=== PATIENT | female | born 1975 | race Caucasian/White ===

== ENCOUNTER → 2020-01-26 10:30 | Outpatient (CLI) | payer BC, SELFPAY ==
--- NOTE | ~2020-01-26 | MM_ITS ---
EXAMINATION: MM screening [facility] w [facility] HISTORY: Screening mammogram TECHNIQUE: Craniocaudal and mediolateral oblique 3-D tomosynthesis images were obtained and synthetic 2-D images were generated. Rotated lateral cc views. CAD analysis was submitted and interpreted. COMPARISON: 09/28/2018, 09/17/2017, 09/16/2016 bilateral digital screening mammogram examinations BREAST PARENCHYMAL COMPOSITION: The breasts are heterogeneously dense, which may obscure small masses . FINDINGS: There is no evidence of suspicious mass, calcification, or architectural distortion to sugg est malignancy in either breast. There has been no suspicious interval change. IMPRESSION: 1. No mammographic evidence of malignancy. 2. Recommend routine screening mammography in one year. BI-RADS Category 1: Negative Reviewed, dictated and finalized at location A.
== END ==
PROVIDERS: PCP Family Medicine; Visit Provider Obstetrics & Gynecology
DX: Z12.31 Encounter for screening mammogram for malignant neoplasm of breast (principal)
CPT/HCPCS: 77063; 77067

== ENCOUNTER 2020-04-23 08:26 | Outpatient (CLI) | payer BC, SELFPAY ==
[2020-04-23 09:36] LABS: Hemoglobin A1C 5.9 % (<5.7)
[2020-04-23 09:39] LABS: Alanine Aminotransferase 20 U/L (4-35); Albumin Level 4.3 g/dL (3.5-5.1); Alkaline Phosphatase 61 U/L (38-126); Anion Gap 10 mmol/L (8-16); Aspartate Amino Transferase 32 U/L (14-36); Bilirubin,Total 0.7 mg/dL (0.2-1.3); Blood Urea Nitrogen 14 mg/dL (7-17); Calcium 8.8 mg/dL (8.4-10.2); Carbon Dioxide 24 mmol/L (22-30); Chloride 104 mmol/L (98-107); Estimated Glomerular Filt Rate > 60; Glucose 110 mg/dL (65-105); Potassium 4.7 mmol/L (3.4-5.0); Sodium 138 mmol/L (137-145)
== END 2020-04-23 08:27 | disposition home or self-care (01) ==
LOC: ANHLAB 08:27
PROVIDERS: PCP Family Medicine; Visit Provider Physician Assistant
DX: E11.9 Type 2 diabetes mellitus without complications (principal)
CPT/HCPCS: 36415; 80053; 83036

== ENCOUNTER 2020-07-26 10:55 | Outpatient (CLI) | payer BC, SELFPAY ==
[2020-07-26 11:46] LABS: Alanine Aminotransferase 23 U/L (4-35); Albumin Level 4.1 g/dL (3.5-5.1); Alkaline Phosphatase 70 U/L (38-126); Anion Gap 8 mmol/L (8-16); Aspartate Amino Transferase 29 U/L (14-36); Bilirubin,Total 0.4 mg/dL (0.2-1.3); Blood Urea Nitrogen 14 mg/dL (7-17); Calcium 8.9 mg/dL (8.4-10.2); Carbon Dioxide 26 mmol/L (22-30); Chloride 102 mmol/L (98-107); Cholesterol 174 mg/dL (0-200); Estimated Glomerular Filt Rate > 60; Glucose 113 mg/dL (65-105); HDL Direct 53 mg/dL; Potassium 4.6 mmol/L (3.4-5.0); Sodium 136 mmol/L (137-145); Triglycerides 241 mg/dL (<150)
[2020-07-26 11:57] LABS: LDL Cholesterol Direct 89 mg/dL
== END 2020-07-26 10:56 | disposition home or self-care (01) ==
PROVIDERS: PCP Family Medicine; Visit Provider Physician Assistant
DX: E11.9 Type 2 diabetes mellitus without complications (principal); E78.2 Mixed hyperlipidemia
CPT/HCPCS: 36415; 80053; 80061

== ENCOUNTER 2020-09-19 11:24 | Emergency (ER) | payer BC, SELFPAY ==
[2020-09-19 11:43] VITALS: BP 115/69; PULSE 65; RESP 16; TEMP 36.6; O2SAT 100
[2020-09-19 11:47] VITALS: BP 115/69; PULSE 65; RESP 16; TEMP 36.6; O2SAT 100
--- NOTE | 2020-09-19 12:08 | ED.GENADULT ---
HPI - General Adult General Chief complaint: Upper Respiratory Infection Stated complaint: congestion/cough/ears blocked Time Seen by Provider: 09/19/20 12:08 Source: patient and RN notes reviewed Mode of arrival: ambulatory Limitations: no limitations History of Present Illness HPI narrative: 45-year-old female presents with complaints of upper respiratory infection, some facial congestion, facial pressure, and ear fullness for the past 4 days. Jazmín reports increasing symptoms over the past 24 hours. NyQuil, DayQuil, Flonase, diffuser, cough drops, and increase fluid without relief. No facial swelling. Intermittent dry cough without chest congestion. Nasal congestion and rhinorrhea. No high fevers, drooling, neck or throat swelling. No voice change. No nausea, vomiting, or abdominal pain. Tolerating liquids well. Denies dyspnea, difficulty swallowing, jaw pain, dental pain, foreign body sensation, and rash. No chest pain or shortness of breath. LMP hysterectomy. Remains active. The patient reports she have not been diagnosed with COVID-19. The patient reports she is not waiting for the results of a COVID-19 lab test. The patient reports she do not have chills, weakness, or fatigue. The patient reports she do not have any sore throat, loss of taste or smell, and diarrhea. Denies recent traveling. Denies concerns for COVID-19 or exposures been home with limited outdoor exposure except for essential household needs, work, and return home. At this time, patient is not suspected of having COVID-19. Some parts of this dictation were generated by voice recognition software and may contain typographical and/or grammatical inaccuracies. Related Data Home Medications Medication Instructions Recorded Confirmed cetirizine 10 mg tablet 10 mg PO DAILY 06/26/19 04/23/20 fluticasone propionate 50 2 spray NASAL DAILY 06/26/19 04/23/20 mcg/actuation nasal spray,suspension norethindrone 1 mg-ethinyl 1 tablet PO DAILY 06/26/19 04/23/20 estradiol 10 mcg (24)-iron 10 mcg(2) tablet Allergies Allergy/AdvReac Type Severity Reaction Status Date / Time trimethobenzamide Allergy Mild LOCAL Verified 04/23/20 15:23 REACTION Review of Systems Review of Systems: Narrative: CONSTITUTIONAL: Denies fever, chills, sweats. EYES: Denies visual changes, redness, discharge. ENT: Complains of rhinorrhea, congestion, facial congestion and pressure. Denies sore throat, otalgia. CARDIOVASCULAR: Denies chest pain, palpitations, edema. RESPIRATORY: Denies dyspnea, wheezing. Complains of intermittent dry cough. GASTROINTESTINAL: Denies abdominal pain, nausea, vomiting, diarrhea. GENITOURINARY: Denies dysuria, hematuria, abnormal discharge SKIN: Denies rash or itching. MUSCULOSKELETAL: Denies acute back pain, joint pain, or myalgia. NEUROLOGIC: Denies numbness or focal weakness. PSYCHIATRIC: Denies anxiety or depression. All other systems reviewed & are unremarkable except as noted in HPI and below. [facility] Past Medical History Medical History (Updated 09/20/20 @ 00:00 by Yogesh Tripathi) Diabetes Exercise-induced asthma Mixed hyperlipidemia PCO (polycystic ovaries) Surgical History Surgical History (Updated 09/19/20 @ 12:23 by MARIANA Anguiano) History of hysterectomy History of tubal ligation Family History Family History Father Hypertension Family history of diabetes mellitus in first degree relative Mother Hypertension Asthma Family history of diabetes mellitus in first degree relative Sibling Asthma Social History Social History (Updated 09/19/20 @ 12:24 by MARIANA Anguiano) Smoking status: Never smoker Tobacco type: cigarettes Second hand tobacco smoke exposure: No Alcohol intake: current Substance use: never Substance use type: does not use Living arrangements: with family Occupation/Education: occupation
[2020-09-20 13:22] LABS: SARS-CoV-2 RNA PCR Negative
== END 2020-09-19 12:58 | disposition home or self-care (01) ==
PROVIDERS: Emergency Provider Nurse Practitioner Family; PCP Family Medicine
DX: J32.9 Chronic sinusitis, unspecified (principal); Z20.822 Contact with and (suspected) exposure to COVID-19; E11.9 Type 2 diabetes mellitus without complications; E78.5 Hyperlipidemia, unspecified; E28.2 Polycystic ovarian syndrome
CPT/HCPCS: 87804; 99213; C9803; G0463; U0003; U0005

== ENCOUNTER 2020-11-05 15:56 | Outpatient (CLI) | payer BC, SELFPAY ==
[2020-11-05 16:16] LABS: Basophils Absolute Auto 0.1 K/mm3 (0.0-0.1); Basophils Percent Auto 0.8 % (0.2-1.2); Eosinophils Absolute Auto 0.1 K/mm3 (0-0.3); Eosinophils Percent Auto 0.5 % (0-4.4); Hematocrit 40.7 % (37.0-47.0); Hemoglobin 13.6 g/dL (12.0-15.0); Immature Granulocyte Absolute 0.04 K/mm3 (0.00-0.031); Immature Granulocyte Percent A 0.4 % (0-0.5); Lymphocytes Absolute Auto 3.35 K/mm3 (0.9-3.2); Lymphocytes Percent Auto 31.5 % (18.3-44.2); Mean Corpuscular HGB Conc 33.4 g/dl (32-36); Mean Corpuscular Volume 86.8 fl (80-100); Mean Platelet Volume 9.5 fl (7.4-10.4); Monocytes Absolute Auto 0.8 K/mm3 (0.1-0.6); Monocytes Percent Auto 7.1 % (2.6-8.5); Neutrophils Absolute Auto 6.4 K/mm3 (1.3-6.7); Neutrophils Percent Auto 59.7 % (45.5-73.1); Platelet Count Result 327 k/mm3 (150-375); Red Blood Count 4.69 M/mm3 (4.2-5.4); Red Cell Distribution Width 12.1 % (11.5-14.5); White Blood Count 10.6 K/mm3 (4.5-10.0)
[2020-11-05 16:21] LABS: Add Urine Microscopic? YES; Appearance Urine Cloudy (Clear); Bacteria Urine Trace /hpf; Bilirubin Urine Negative (Negative); Blood Urine Negative (Negative); Color Urine Yellow (Yellow); Glucose Urine UA Negative (Negative); Ketones Urine Negative (Negative); Leukocyte Esterase Ur Negative LEU/UL (NEGATIVE); Mucus Urine Rare /lpf; Nitrate Urine Negative (Negative); Protein Urine Negative (Negative); RBC Urine 0-2 /hpf (0-2); Specific Grav Ur 1.028 (1.001-1.035); Squamous Epithelial Cell Urine Moderate /hpf (Few); Urobilinogen Urine Negative mg/dL (<2.0); WBC Urine 0-3 /hpf (0-3)
[2020-11-05 16:27] LABS: Alanine Aminotransferase 23 U/L (4-35); Albumin Level 4.2 g/dL (3.5-5.1); Alkaline Phosphatase 72 U/L (38-126); Anion Gap 4 mmol/L (8-16); Aspartate Amino Transferase 38 U/L (14-36); Bilirubin,Total 0.2 mg/dL (0.2-1.3); Blood Urea Nitrogen 15 mg/dL (7-17); Calcium 9.1 mg/dL (8.4-10.2); Carbon Dioxide 27 mmol/L (22-30); Chloride 106 mmol/L (98-107); Estimated Glomerular Filt Rate > 60; Glucose 163 mg/dL (65-105); Potassium 4.2 mmol/L (3.4-5.0); Sodium 137 mmol/L (137-145)
[2020-11-05 16:46] LABS: Hemoglobin A1C 6.5 % (<5.7)
== END 2020-11-05 15:57 | disposition home or self-care (01) ==
LOC: ANHLAB 15:58
PROVIDERS: Physician Assistant; PCP Family Medicine; Visit Provider Physician Assistant
DX: Z00.00 Encounter for general adult medical examination without abnormal findings (principal); E78.2 Mixed hyperlipidemia; E11.9 Type 2 diabetes mellitus without complications
CPT/HCPCS: 36415; 80053; 81001; 83036; 84443; 85025

== ENCOUNTER 2020-12-02 14:43 | Outpatient (CLI) | payer BC, SELFPAY ==
[2020-12-02 15:17] LABS: Basophils Absolute Auto 0.1 K/mm3 (0.0-0.1); Basophils Percent Auto 0.5 % (0.2-1.2); Eosinophils Absolute Auto 0.1 K/mm3 (0-0.3); Eosinophils Percent Auto 0.5 % (0-4.4); Hematocrit 41.1 % (37.0-47.0); Hemoglobin 13.8 g/dL (12.0-15.0); Immature Granulocyte Absolute 0.03 K/mm3 (0.00-0.031); Immature Granulocyte Percent A 0.3 % (0-0.5); Lymphocytes Absolute Auto 2.93 K/mm3 (0.9-3.2); Lymphocytes Percent Auto 30.7 % (18.3-44.2); Mean Corpuscular HGB Conc 33.6 g/dl (32-36); Mean Corpuscular Hemoglobin 29.1 pg (26-34); Mean Corpuscular Volume 86.5 fl (80-100); Mean Platelet Volume 9.7 fl (7.4-10.4); Monocytes Percent Auto 10.4 % (2.6-8.5); Neutrophils Absolute Auto 5.5 K/mm3 (1.3-6.7); Neutrophils Percent Auto 57.6 % (45.5-73.1); Platelet Count Result 329 k/mm3 (150-375); Red Blood Count 4.75 M/mm3 (4.2-5.4); Red Cell Distribution Width 12.1 % (11.5-14.5); White Blood Count 9.5 K/mm3 (4.5-10.0)
[2020-12-02 15:29] LABS: Alanine Aminotransferase 24 U/L (4-35); Albumin Level 4.1 g/dL (3.5-5.1); Alkaline Phosphatase 76 U/L (38-126); Amylase 43 U/L (30-110); Anion Gap 8 mmol/L (8-16); Aspartate Amino Transferase 33 U/L (14-36); Bilirubin,Total 0.2 mg/dL (0.2-1.3); Blood Urea Nitrogen 13 mg/dL (7-17); Calcium 8.9 mg/dL (8.4-10.2); Carbon Dioxide 24 mmol/L (22-30); Chloride 107 mmol/L (98-107); Estimated Glomerular Filt Rate > 60; Glucose 131 mg/dL (65-105); Lipase 68 U/L (23-300); Potassium 4.2 mmol/L (3.4-5.0); Sodium 139 mmol/L (137-145)
== END 2020-12-02 14:44 | disposition home or self-care (01) ==
PROVIDERS: PCP Family Medicine; Visit Provider Physician Assistant
DX: E78.2 Mixed hyperlipidemia (principal); E11.9 Type 2 diabetes mellitus without complications; R10.13 Epigastric pain
CPT/HCPCS: 36415; 80053; 82150; 83690; 85025

== ENCOUNTER → 2020-12-13 07:42 | Outpatient (CLI) | payer BC, SELFPAY ==
--- NOTE | ~2020-12-13 | US_ITS ---
US abdomen limited INDICATION: Epigastric pain PROCEDURE: Realtime right upper abdominal ultrasound. COMPARISON: CT dated 02/27/2017 FINDINGS: The pancreas is normal without focal mass or pancreatic ductal dilation. There is a comple x hypoechoic mass of the posterior segment right hepatic lobe measuring 5.9 x 5.6 x 4.5 cm. There is associated internal vascularity. There is diffuse fatty infiltration. There is normal directional fl ow in the portal vein. The gallbladder is normal without stones, gallbladder wall thickening or pericholecystic fluid. Comm on bile duct measures 4 mm. No sonographic Fletcher's sign. IMPRESSION: 1: Heterogeneous 5.9 cm enhancing mass of the right hepatic lobe. In correlation with contrast-enhanc ed MRI recommended. Reviewed, dictated and finalized at location A. IMPRESSION: 1: Heterogeneous 5.9 cm enhancing mass of the right hepatic lobe. In correlatio n with contrast-enhanced MRI recommended.
== END ==
PROVIDERS: PCP Family Medicine; Visit Provider Family Medicine
DX: R10.13 Epigastric pain (principal)
CPT/HCPCS: 76705

== ENCOUNTER 2020-12-24 06:40 | Outpatient (CLI) | payer BC, SELFPAY ==
--- NOTE | ~2020-12-24 | MR_ITS ---
EXAMINATION: MR abdomen wo/w con INDICATION: Liver mass on ultrasound, hepatomegaly not elsewhere specified TECHNIQUE: Coronal SSFSE ARC, WATER:coronal LAVA-FLEX, Coronal 2D FIESTA FatSat, Axial SSFSE BH ARC, Axial 3D DualEcho BH, Axial SSFSE-IR, Axial DWI b=500, Axial 2D FIESTA FatSat, pre and dynamic postco ntrast Axial LAVA ARC, postcontrast Coronal In and Opposed phase LAVA FLEX COMPARISON: 12/13/2020 CONTRAST: Multihance, 15 cc FINDINGS: There is a 4.4 x 3.3 cm slightly T1 hypointense, slightly T2 hyperintense mass in liver seg ment which demonstrates arterial enhancement after contrast administration and becomes progressive ly isointense to the liver by the 10 minute postcontrast sequence. Delayed postcontrast sequences als o demonstrate a central area of enhancement. There is loss of hepatic parenchymal signal on opposed p hase imaging, consistent with hepatic steatosis. The spleen, pancreas, gallbladder, and adrenal glan ds are normal. The kidneys are unremarkable. There are no pathologically enlarged abdominal lymph nod es. IMPRESSION: 1. Right hepatic lobe mass with MRI features consistent with focal nodular hyperplasia. 2. Diffuse hepatic steatosis. Reviewed, dictated and finalized at location A. IMPRESSION: 1. Right hepatic lobe mass with MRI features consistent with focal nodular hype rplasia. 2. Diffuse hepatic steatosis.
== END 2020-12-24 06:41 | disposition home or self-care (01) ==
LOC: ANHIMG 06:42
PROVIDERS: PCP Family Medicine; Visit Provider Physician Assistant
DX: R16.0 Hepatomegaly, not elsewhere classified (principal); K76.0 Fatty (change of) liver, not elsewhere classified
CPT/HCPCS: 74183; A9577

== ENCOUNTER → 2021-01-27 17:23 | Outpatient (CLI) | payer BC, SELFPAY ==
--- NOTE | ~2021-01-27 | MM_ITS ---
EXAMINATION: MM screening [facility] w [place] HISTORY: Screening mammogram. Patient reports stiffness, tenderness lateral right breast for 3 to 4 w eeks but wished to proceed with the screening mammogram. TECHNIQUE: Craniocaudal and mediolateral oblique 3-D tomosynthesis images were obtained and synthetic 2-D images were generated. CAD analysis was submitted and interpreted. COMPARISON: 01/26/2020, 09/28/2018, 09/17/2017, 09/16/2016 bilateral digital screening mammogram examinat ions BREAST PARENCHYMAL COMPOSITION: Bilateral rotated lateral cc views. FINDINGS: There is a new cluster grouped microcalcifications in the outer mid right breast at mid dep th. Diagnostic right mammogram with magnification views is recommended. Otherwise there is no evidence of suspicious mass, calcification, or architectural distortion to sugg est malignancy in either breast. There has been no other suspicious interval change. IMPRESSION: 1. New cluster of grouped microcalcifications in the outer mid right breast 2. Diagnostic right mammogram with magnification views is recommended. BI-RADS Category 0: Incomplete: Needs additional imaging evaluation. Reviewed, dictated and finalized at location A.
== END ==
PROVIDERS: Visit Provider Obstetrics & Gynecology
DX: Z12.31 Encounter for screening mammogram for malignant neoplasm of breast (principal); R92.8 Other abnormal and inconclusive findings on diagnostic imaging of breast
CPT/HCPCS: 77063; 77067

== ENCOUNTER 2021-02-07 15:48 | Outpatient (CLI) | payer BC, SELFPAY ==
[2021-02-11 16:27] LABS: Alpha Fetoprotein Tumor Marker 4.8 ng/mL (<6.1)
== END 2021-02-07 15:49 | disposition home or self-care (01) ==
LOC: ANHLAB 15:50
PROVIDERS: Visit Provider Internal Medicine Gastroenterology
DX: K76.89 Other specified diseases of liver (principal); R10.13 Epigastric pain
CPT/HCPCS: 36415; 82105

== ENCOUNTER → 2021-03-25 07:57 | Outpatient (CLI) | payer BC, SELFPAY ==
--- NOTE | ~2021-03-25 | MMUS_ITS ---
EXAMINATION: MM diagnostic mammo unilat RT, US breast RT complete HISTORY: New cluster of grouped microcalcifications in the outer mid right breast at mid depth on 12/31 screening mammogram TECHNIQUE: Additional ML view and ML, MLO and craniocaudal magnification views were performed . CAD a nalysis was submitted and interpreted. High resolution complete right breast ultrasound was performed . COMPARISON: 01/27/2021 bilateral digital screening mammogram BREAST PARENCHYMAL COMPOSITION: The breasts are heterogeneously dense, which may obscure small masses . FINDINGS: MAMMOGRAPHIC FINDINGS: There is a tight cluster of relatively uniform rounded microcalcifications in the outer mid right aris ast, having benign appearance. An 8 mm circumscribed mass is suggested in the upper right breast. The heterogeneous density of the breast may obscure additional masses. Ultrasound examination was per formed. ULTRASOUND: 12:00 4 cm from nipple: There is a parallel circumscribed hypoechoic multiseptate approximately 4.7 x 8.4 x 10 mm lesion without internal vascularity or suspicious shadowing. No suspicious mass or shadowing of the right breast is detected. IMPRESSION: 1. Benign findings; no mammographic evidence of malignancy 2. Routine annual mammographic screening is recommended. BI-RADS Category 2: Benign finding(s). Reviewed, dictated and finalized at location A. IMPRESSION: 1. Benign findings; no mammographic evidence of malignancy 2. Routine annual mammographic screening is recommended. BI-RADS Category 2: Benign finding(s).
== END ==
PROVIDERS: PCP Family Medicine; Visit Provider Obstetrics & Gynecology
DX: R92.8 Other abnormal and inconclusive findings on diagnostic imaging of breast (principal)
CPT/HCPCS: 76641; 77065

== ENCOUNTER 2021-05-11 07:56 | Outpatient (CLI) | payer BC, SELFPAY ==
[2021-05-11 09:10] LABS: Anion Gap 9 mmol/L (8-16); Carbon Dioxide 22 mmol/L (22-30); Chloride 105 mmol/L (98-107); Potassium 4.6 mmol/L (3.4-5.0); Sodium 136 mmol/L (137-145)
[2021-05-11 09:11] LABS: Alanine Aminotransferase 22 U/L (4-35); Albumin Level 4.2 g/dL (3.5-5.1); Alkaline Phosphatase 66 U/L (38-126); Aspartate Amino Transferase 32 U/L (14-36); Bilirubin,Total 0.5 mg/dL (0.2-1.3); Blood Urea Nitrogen 15 mg/dL (7-17); Calcium 8.3 mg/dL (8.4-10.2); Estimated Glomerular Filt Rate > 60; Glucose 122 mg/dL (65-110)
[2021-05-11 09:18] LABS: Hemoglobin A1C 6.3 % (<5.7)
== END 2021-05-11 07:57 | disposition home or self-care (01) ==
LOC: ANHLAB 07:59
PROVIDERS: PCP Family Medicine; Visit Provider Physician Assistant
DX: E11.9 Type 2 diabetes mellitus without complications (principal)
CPT/HCPCS: 36415; 80053; 83036

== ENCOUNTER 2021-07-01 10:10 | Outpatient (CLI) | payer BC, SELFPAY ==
[2021-07-01 11:02] LABS: Anion Gap 10 mmol/L (8-16); Blood Urea Nitrogen 12 mg/dL (7-17); Calcium 9.2 mg/dL (8.4-10.2); Carbon Dioxide 23 mmol/L (22-30); Chloride 103 mmol/L (98-107); Estimated Glomerular Filt Rate > 60; Glucose 121 mg/dL (65-110); Potassium 4.8 mmol/L (3.4-5.0); Sodium 136 mmol/L (137-145)
== END 2021-07-01 10:11 | disposition home or self-care (01) ==
LOC: ANHLAB 10:13
PROVIDERS: PCP Family Medicine; Visit Provider Physician Assistant
DX: E83.51 Hypocalcemia (principal)
CPT/HCPCS: 36415; 80048

== ENCOUNTER 2021-09-10 10:50 | Outpatient (CLI) | payer BC, SELFPAY ==
[2021-09-10 11:36] LABS: Hemoglobin A1C 6.1 % (<5.7)
[2021-09-10 11:39] LABS: Alanine Aminotransferase 33 U/L (4-35); Albumin Level 4.5 g/dL (3.5-5.1); Alkaline Phosphatase 81 U/L (38-126); Anion Gap 9 mmol/L (8-16); Aspartate Amino Transferase 49 U/L (14-36); Bilirubin,Total 0.4 mg/dL (0.2-1.3); Blood Urea Nitrogen 14 mg/dL (7-17); Calcium 8.8 mg/dL (8.4-10.2); Carbon Dioxide 24 mmol/L (22-30); Chloride 102 mmol/L (98-107); Estimated Glomerular Filt Rate > 60; Glucose 107 mg/dL (65-110); Potassium 4.3 mmol/L (3.4-5.0); Sodium 135 mmol/L (137-145)
== END 2021-09-10 10:51 | disposition home or self-care (01) ==
LOC: ANHLAB 10:52
PROVIDERS: PCP Family Medicine; Visit Provider Nurse Practitioner Family
DX: E11.9 Type 2 diabetes mellitus without complications (principal)
CPT/HCPCS: 36415; 80053; 83036

== ENCOUNTER 2021-10-27 08:25 | Outpatient (CLI) | payer BC, SELFPAY ==
--- NOTE | ~2021-10-27 | MR_ITS ---
EXAMINATION: MR abdomen wo/w con DATE: 10/27/2021 09:50 INDICATION: Other specified disease of liver. 1 year follow-up of a right hepatic mass. TECHNIQUE: Magnetic resonance imaging (MRI) of the abdomen was performed without and with 15 mL Multi adin intravenous contrast. Sequences included coronal T2-weighted SS-FSE, coronal and axial FS 2D-F IESTA, axial STIR FSE, axial T2-weighted SS-FSE, axial T2-weighted FS SS-FSE, axial diffusion-weighte d SE, axial dual-echo T1-weighted FSPGR, and axial and coronal T1-weighted LAVA. Postcontrast axial T 1-weighted LAVA images were obtained in a time course. Postcontrast coronal T1-weighted LAVA images w ere obtained. COMPARISON: 12/24/2020 FINDINGS: Heart size is normal. No pericardial or pleural effusion. Diffuse hepatic steatosis with signal dropo ut on opposed phase images. No significant interval change in a 5.3 x 4.2 cm mass at the caudal tip o f segment 6 of the liver which demonstrates early arterial enhancement which persists with no washout on delayed imaging. No other liver lesions identified. Gallbladder, pancreas, spleen, bilateral adre nal glands and kidneys are normal. Visualized portion of the bowels are normal. No pathologically enl arged abdominal lymphadenopathy. Bones are unremarkable with normal marrow signal throughout. IMPRESSION: 1. No interval change in a likely benign 5.3 x 4.2 cm right hepatic mass with MR imaging features mos t suggestive of focal nodular hyperplasia. 2. Diffuse hepatic steatosis. Reviewed, dictated and finalized at location B. IMPRESSION: 1. No interval change in a likely benign 5.3 x 4.2 cm right hepatic mass with M R imaging features most suggestive of focal nodular hyperplasia. 2. Diffuse hepatic steatosis.
[2021-10-27 09:17] LABS: Estimated Glomerular Filt Rate > 60
== END 2021-10-27 08:26 | disposition home or self-care (01) ==
PROVIDERS: PCP Family Medicine; Visit Provider Internal Medicine Gastroenterology
DX: K76.89 Other specified diseases of liver (principal)
CPT/HCPCS: 74183; A9577

== ENCOUNTER 2022-01-28 08:37 | Outpatient (CLI) | payer BC, SELFPAY ==
[2022-01-28 09:37] LABS: Basophils Absolute Auto 0.1 K/mm3 (0.0-0.1); Basophils Percent Auto 0.6 % (0.2-1.2); Eosinophils Absolute Auto 0.1 K/mm3 (0-0.3); Eosinophils Percent Auto 0.6 % (0-4.4); Hematocrit 42.4 % (37.0-47.0); Immature Granulocyte Absolute 0.05 K/mm3 (0.00-0.031); Immature Granulocyte Percent A 0.5 % (0-0.5); Lymphocytes Absolute Auto 3.41 K/mm3 (0.9-3.2); Mean Corpuscular Hemoglobin 29.5 pg (26-34); Mean Corpuscular Volume 89.5 fl (80-100); Mean Platelet Volume 9.7 fl (7.4-10.4); Monocytes Absolute Auto 0.8 K/mm3 (0.1-0.6); Neutrophils Absolute Auto 6.3 K/mm3 (1.3-6.7); Neutrophils Percent Auto 59.3 % (45.5-73.1); Platelet Count Result 318 k/mm3 (150-375); Red Blood Count 4.74 M/mm3 (4.2-5.4); Red Cell Distribution Width 12.4 % (11.5-14.5); White Blood Count 10.6 K/mm3 (4.5-10.0)
[2022-01-28 09:40] LABS: Alanine Aminotransferase 23 U/L (6-35); Albumin Level 4.3 g/dL (3.5-5.1); Alkaline Phosphatase 70 U/L (38-126); Anion Gap 11 mmol/L (8-16); Aspartate Amino Transferase 27 U/L (14-36); Bilirubin,Total 0.4 mg/dL (0.2-1.3); Blood Urea Nitrogen 15 mg/dL (7-17); Calcium 9.4 mg/dL (8.4-10.2); Carbon Dioxide 24 mmol/L (22-30); Chloride 104 mmol/L (98-107); Cholesterol 168 mg/dL (0-200); Estimated Glomerular Filt Rate > 60; Glucose 118 mg/dL (65-110); HDL Direct 49 mg/dL; Potassium 4.2 mmol/L (3.4-5.0); Sodium 139 mmol/L (137-145); Triglycerides 209 mg/dL (<150)
[2022-01-28 09:44] LABS: Hemoglobin A1C 6.3 % (<5.7)
[2022-01-28 09:55] LABS: LDL Cholesterol Direct 79 mg/dL
[2022-01-28 10:19] LABS: Creatinine Urine 147.9 mg/dL
[2022-01-28 10:23] LABS: MALB Creatinine Ratio 6.6 mg/g (0-30); Microalbumin Urine Random 9.7 mg/L (0-16.7)
[2022-01-28 10:33] LABS: Vitamin D 25 Hydroxy 64.2 ng/mL
[2022-01-28 10:58] LABS: Folic Acid > 20.0 ng/mL (2.76->20)
[2022-01-28 11:03] LABS: Appearance Urine Cloudy (Clear); Bilirubin Urine Negative (Negative); Color Urine Yellow (Yellow); Glucose Urine UA Negative (Negative); Ketones Urine Negative (Negative); Leukocyte Esterase Ur Negative LEU/UL (NEGATIVE); Nitrate Urine Negative (Negative); Protein Urine Negative (Negative); Specific Grav Ur 1.025 (1.001-1.035); Urobilinogen Urine 0.2 mg/dL (<2.0); pH Urine 5.5 (5.0-9.0)
[2022-01-28 11:22] LABS: Add Urine Microscopic? YES; Blood Urine Trace-Intact (Negative)
[2022-01-28 11:24] LABS: Bacteria Urine Trace /hpf; Mucus Urine Few /lpf; RBC Urine 0-2 /hpf (0-2); Squamous Epithelial Cell Urine Many /hpf (Few)
== END 2022-01-28 08:38 | disposition home or self-care (01) ==
LOC: ANHLAB 08:38
PROVIDERS: PCP Family Medicine; Visit Provider Physician Assistant
DX: Z00.00 Encounter for general adult medical examination without abnormal findings (principal); E78.2 Mixed hyperlipidemia; E11.9 Type 2 diabetes mellitus without complications; R51.9 Headache, unspecified; R53.83 Other fatigue
CPT/HCPCS: 36415; 80053; 80061; 81001; 82043; 82306; 82607; 82746; 83036; 84443; 85025

== ENCOUNTER → 2022-03-20 14:49 | Outpatient (CLI) | payer BC, SELFPAY ==
--- NOTE | ~2022-03-20 | MM_ITS ---
EXAMINATION: MM screening [facility] BI w saturnino HISTORY: Screening mammogram TECHNIQUE: Craniocaudal and mediolateral oblique 3-D tomosynthesis images were obtained and synthetic 2-D images were generated. CAD analysis was submitted and interpreted. COMPARISON: 03/25/2021, 01/27/2021, 01/26/2020 BREAST PARENCHYMAL COMPOSITION: The breasts are heterogeneously dense, which may obscure small masses . FINDINGS: There is no suspicious mass, calcification, or architectural distortion to suggest malignan cy in either breast. There has been no suspicious interval change. IMPRESSION: 1. No mammographic evidence of malignancy. 2. Recommend routine screening mammography in one year. BI-RADS Category 1: Negative Reviewed, dictated and finalized at location A.
== END ==
PROVIDERS: PCP Family Medicine; Visit Provider Obstetrics & Gynecology
DX: Z12.31 Encounter for screening mammogram for malignant neoplasm of breast (principal)
CPT/HCPCS: 77063; 77067

== ENCOUNTER 2022-06-27 10:08 | Outpatient (CLI) | payer BC, SELFPAY ==
[2022-06-27 10:34] LABS: Basophils Percent Auto 0.4 % (0.2-1.2); Eosinophils Absolute Auto 0.1 K/mm3 (0-0.3); Eosinophils Percent Auto 0.6 % (0-4.4); Hematocrit 40.3 % (37.0-47.0); Hemoglobin 13.5 g/dL (12.0-15.0); Immature Granulocyte Absolute 0.03 K/mm3 (0.00-0.031); Immature Granulocyte Percent A 0.4 % (0-0.5); Lymphocytes Absolute Auto 2.54 K/mm3 (0.9-3.2); Lymphocytes Percent Auto 32.7 % (18.3-44.2); Mean Corpuscular HGB Conc 33.5 g/dl (32-36); Mean Corpuscular Hemoglobin 29.7 pg (26-34); Mean Corpuscular Volume 88.8 fl (80-100); Mean Platelet Volume 9.6 fl (7.4-10.4); Monocytes Absolute Auto 0.5 K/mm3 (0.1-0.6); Monocytes Percent Auto 6.3 % (2.6-8.5); Neutrophils Absolute Auto 4.6 K/mm3 (1.3-6.7); Neutrophils Percent Auto 59.6 % (45.5-73.1); Platelet Count Result 319 k/mm3 (150-375); Red Blood Count 4.54 M/mm3 (4.2-5.4); Red Cell Distribution Width 12.5 % (11.5-14.5); White Blood Count 7.8 K/mm3 (4.5-10.0)
[2022-06-27 10:45] LABS: Hemoglobin A1C 6.9 % (<5.7)
[2022-06-27 10:46] LABS: Alanine Aminotransferase 28 U/L (6-35); Albumin Level 4.2 g/dL (3.5-5.1); Alkaline Phosphatase 67 U/L (38-126); Anion Gap 4 mmol/L (8-16); Aspartate Amino Transferase 34 U/L (14-36); Bilirubin,Total 0.4 mg/dL (0.2-1.3); Blood Urea Nitrogen 11 mg/dL (7-17); Calcium 9.5 mg/dL (8.4-10.2); Carbon Dioxide 25 mmol/L (22-30); Chloride 103 mmol/L (98-107); Estimated Glomerular Filt Rate > 60; Glucose 149 mg/dL (65-110); Potassium 4.3 mmol/L (3.4-5.0); Sodium 132 mmol/L (137-145)
== END 2022-06-27 10:09 | disposition home or self-care (01) ==
LOC: ANHLAB 10:10
PROVIDERS: PCP Family Medicine; Visit Provider Physician Assistant
DX: Z00.00 Encounter for general adult medical examination without abnormal findings (principal); E78.2 Mixed hyperlipidemia; E11.9 Type 2 diabetes mellitus without complications; D72.829 Elevated white blood cell count, unspecified
CPT/HCPCS: 36415; 80053; 83036; 85025

== ENCOUNTER 2022-10-19 13:03 | Outpatient (CLI) | payer BC, SELFPAY ==
[2022-10-19 13:53] LABS: Alanine Aminotransferase 40 U/L (6-35); Albumin Level 4.5 g/dL (3.5-5.1); Alkaline Phosphatase 77 U/L (38-126); Anion Gap 8 mmol/L (8-16); Aspartate Amino Transferase 62 U/L (14-36); Bilirubin,Total 0.5 mg/dL (0.2-1.3); Blood Urea Nitrogen 15 mg/dL (7-17); Calcium 9.2 mg/dL (8.4-10.2); Carbon Dioxide 23 mmol/L (22-30); Chloride 105 mmol/L (98-107); Estimated Glomerular Filt Rate > 60; Glucose 117 mg/dL (65-110); Potassium 4.4 mmol/L (3.4-5.0); Sodium 136 mmol/L (137-145)
[2022-10-19 13:58] LABS: Hemoglobin A1C 6.9 % (<5.7)
== END 2022-10-19 13:04 | disposition home or self-care (01) ==
LOC: ANHLAB 13:05
PROVIDERS: PCP Family Medicine; Visit Provider Physician Assistant
DX: E11.9 Type 2 diabetes mellitus without complications (principal)
CPT/HCPCS: 36415; 80053; 83036

== ENCOUNTER 2023-02-16 07:47 | Outpatient (CLI) | payer BC, SELFPAY ==
[2023-02-16 10:21] LABS: Basophils Absolute Auto 0.1 K/mm3 (0.0-0.1); Basophils Percent Auto 0.5 % (0.2-1.2); Eosinophils Absolute Auto 0.1 K/mm3 (0-0.3); Eosinophils Percent Auto 0.5 % (0-4.4); Hemoglobin 14.5 g/dL (12.0-15.0); Immature Granulocyte Absolute 0.04 K/mm3 (0.00-0.031); Immature Granulocyte Percent A 0.3 % (0-0.5); Lymphocytes Absolute Auto 3.59 K/mm3 (0.9-3.2); Lymphocytes Percent Auto 30.1 % (18.3-44.2); Mean Corpuscular HGB Conc 32.2 g/dl (32-36); Mean Platelet Volume 10.2 fl (7.4-10.4); Monocytes Absolute Auto 0.8 K/mm3 (0.1-0.6); Monocytes Percent Auto 6.7 % (2.6-8.5); Neutrophils Absolute Auto 7.4 K/mm3 (1.3-6.7); Neutrophils Percent Auto 61.9 % (45.5-73.1); Platelet Count Result 348 k/mm3 (150-375); Red Cell Distribution Width 12.3 % (11.5-14.5); White Blood Count 11.9 K/mm3 (4.5-10.0)
[2023-02-16 10:27] LABS: Alanine Aminotransferase 34 U/L (6-35); Albumin Level 4.6 g/dL (3.5-5.1); Alkaline Phosphatase 92 U/L (38-126); Anion Gap 10 mmol/L (8-16); Aspartate Amino Transferase 49 U/L (14-36); Bilirubin,Total 0.6 mg/dL (0.2-1.3); Blood Urea Nitrogen 11 mg/dL (7-17); Calcium 10.2 mg/dL (8.4-10.2); Carbon Dioxide 24 mmol/L (22-30); Chloride 101 mmol/L (98-107); Cholesterol 186 mg/dL (0-200); Estimated Glomerular Filt Rate > 60; Glucose 118 mg/dL (65-110); HDL Direct 47 mg/dL; Magnesium 1.9 mg/dL (1.6-2.3); Potassium 4.7 mmol/L (3.4-5.0); Sodium 135 mmol/L (137-145); Triglycerides 208 mg/dL (<150)
[2023-02-16 10:37] LABS: Hemoglobin A1C 6.6 % (<5.7)
[2023-02-16 10:38] LABS: LDL Cholesterol Direct 99 mg/dL
[2023-02-16 11:10] LABS: Microalbumin Urine Random 8.4 mg/L (0-16.7)
[2023-02-16 11:19] LABS: Creatinine Urine 99.2 mg/dL; MALB Creatinine Ratio 8.5 mg/g (0-30)
[2023-02-16 11:41] LABS: Appearance Urine Clear (Clear); Bilirubin Urine Negative (Negative); Blood Urine Negative (Negative); Color Urine Yellow (Yellow); Glucose Urine UA Negative (Negative); Ketones Urine Negative (Negative); Leukocyte Esterase Ur Negative LEU/UL (NEGATIVE); Nitrate Urine Negative (Negative); Protein Urine Negative (Negative); Specific Grav Ur 1.019 (1.001-1.035); Urobilinogen Urine 0.2 mg/dL (<2.0); pH Urine 5.5 (5.0-9.0)
[2023-02-16 11:43] LABS: Add Urine Microscopic? NO
== END 2023-02-16 07:48 | disposition home or self-care (01) ==
LOC: ANHLAB 07:49
PROVIDERS: PCP Family Medicine; Visit Provider Physician Assistant
DX: Z00.00 Encounter for general adult medical examination without abnormal findings (principal); E11.9 Type 2 diabetes mellitus without complications; E78.2 Mixed hyperlipidemia; E61.2 Magnesium deficiency
CPT/HCPCS: 36415; 80053; 80061; 81003; 82043; 83036; 83735; 84443; 85025

== ENCOUNTER → 2023-04-02 10:22 | Outpatient (CLI) | payer BC, SELFPAY ==
--- NOTE | ~2023-04-02 | MM_ITS ---
EXAMINATION: MM screening [facility] BI w sat[place] HISTORY: Screening mammogram TECHNIQUE: Craniocaudal and mediolateral oblique 3-D tomosynthesis images were obtained and synthetic 2-D images were generated. CAD analysis was submitted and interpreted. COMPARISON: 03/20/2022, 03/25/2021, 01/27/2021 BREAST PARENCHYMAL COMPOSITION: The breasts are heterogeneously dense, which may obscure small masses . FINDINGS: No suspicious mass, calcification, or architectural distortion are identified in either aris ast to suggest malignancy. There has been no suspicious interval change. IMPRESSION: 1. No mammographic evidence of malignancy. 2. Recommend routine screening mammography in one year. BI-RADS Category 1: Negative Reviewed, dictated and finalized at location A.
== END ==
PROVIDERS: PCP Obstetrics & Gynecology; Visit Provider Obstetrics & Gynecology
DX: Z12.31 Encounter for screening mammogram for malignant neoplasm of breast (principal)
CPT/HCPCS: 77063; 77067

== ENCOUNTER 2023-06-27 08:23 | Outpatient (CLI) | payer BC, SELFPAY ==
[2023-06-27 08:59] LABS: Hematocrit 43.2 % (37.0-47.0); Hemoglobin 13.7 g/dL (12.0-15.0); Mean Corpuscular HGB Conc 31.7 g/dl (32-36); Mean Corpuscular Hemoglobin 29.1 pg (26-34); Mean Corpuscular Volume 91.7 fl (80-100); Platelet Count Result 327 k/mm3 (150-375); Red Blood Count 4.71 M/mm3 (4.2-5.4); Red Cell Distribution Width 12.5 % (11.5-14.5)
[2023-06-27 09:24] LABS: Hemoglobin A1C 6.6 % (<5.7)
== END 2023-06-27 08:24 | disposition home or self-care (01) ==
LOC: ANHLAB 08:25
PROVIDERS: PCP Family Medicine; Visit Provider Family Medicine
DX: E11.9 Type 2 diabetes mellitus without complications (principal); D72.829 Elevated white blood cell count, unspecified
CPT/HCPCS: 36415; 83036; 85027

== ENCOUNTER 2023-06-29 09:23 | Outpatient (CLI) | payer BC, SELFPAY ==
[2023-06-29 10:11] LABS: Alanine Aminotransferase 37 U/L (6-35); Albumin Level 4.1 g/dL (3.5-5.1); Alkaline Phosphatase 90 U/L (38-126); Anion Gap 10 mmol/L (8-16); Aspartate Amino Transferase 49 U/L (14-36); Bilirubin,Total 0.4 mg/dL (0.2-1.3); Blood Urea Nitrogen 13 mg/dL (7-17); Calcium 8.7 mg/dL (8.4-10.2); Carbon Dioxide 20 mmol/L (22-30); Chloride 108 mmol/L (98-107); Estimated Glomerular Filt Rate > 60; Glucose 146 mg/dL (65-110); Potassium 4.2 mmol/L (3.4-5.0); Sodium 138 mmol/L (137-145)
== END 2023-06-29 09:24 | disposition home or self-care (01) ==
PROVIDERS: PCP Family Medicine; Visit Provider Physician Assistant
DX: E11.9 Type 2 diabetes mellitus without complications (principal); D72.829 Elevated white blood cell count, unspecified
CPT/HCPCS: 36415; 80053

== ENCOUNTER 2023-10-31 10:02 | Outpatient (CLI) | payer BC, SELFPAY ==
[2023-10-31 10:27] LABS: Alanine Aminotransferase 53 U/L (6-35); Albumin Level 4.6 g/dL (3.5-5.1); Alkaline Phosphatase 84 U/L (38-126); Anion Gap 10 mmol/L (4-12); Aspartate Amino Transferase 84 U/L (14-36); Bilirubin,Total 0.7 mg/dL (0.2-1.3); Blood Urea Nitrogen 14 mg/dL (7-17); Carbon Dioxide 20 mmol/L (22-30); Chloride 106 mmol/L (98-107); Estimated Glomerular Filt Rate > 60; Glucose 136 mg/dL (65-110); Potassium 4.6 mmol/L (3.4-5.0); Sodium 136 mmol/L (137-145)
[2023-10-31 10:35] LABS: Hemoglobin A1C 6.8 % (<5.7)
== END 2023-10-31 10:03 | disposition home or self-care (01) ==
PROVIDERS: PCP Family Medicine; Visit Provider Physician Assistant
DX: E11.9 Type 2 diabetes mellitus without complications (principal)
CPT/HCPCS: 36415; 80053; 83036

== ENCOUNTER 2023-12-17 09:27 | Emergency (ER) | payer BC, SELFPAY ==
[2023-12-17 09:35] VITALS: BP 125/69; PULSE 65; RESP 18; TEMP 36.4; O2SAT 99
--- NOTE | 2023-12-17 09:51 | ED.SKABFB ---
HPI - Skin/Abscess/Foreign Bdy General Chief complaint: Skin/Abscess/Foreign Body Stated complaint: Blister Right Foot Time Seen by Provider: 12/17/23 09:40 Source: patient and RN notes reviewed Mode of arrival: ambulatory Limitations: no limitations History of Present Illness HPI narrative: Patient presents today complaining of a ruptured blister to her right 3rd toe that she believes to be infected. Blister initially started 5 days ago and ruptured 4 days ago. She does report some significant pain. Before the blister appeared she thought she possibly had athlete's foot and had been spraying her foot with athlete's foot spray. After the blister appeared and since that time she has been applying Neosporin and taking ibuprofen for her symptoms. Patient is diabetic Related Data Home Medications Medication Instructions Recorded Confirmed fluticasone propionate 50 2 spray intranasal DAILY 06/26/19 12/17/23 mcg/actuation nasal spray,suspension (Flonase Allergy Relief) norethindrone 1 mg-ethinyl 1 tablet PO DAILY 06/26/19 12/17/23 estradiol 10 mcg (24)-iron 10 mcg(2) tablet (Lo Loestrin Fe) multivitamin 1 tablet PO DAILY 04/14/22 12/17/23 Allergies Allergy/AdvReac Type Severity Reaction Status Date / Time trimethobenzamide Allergy Mild LOCAL Verified 11/06/23 15:17 REACTION Review of Systems Review of Systems: CONSTITUTIONAL: Denies body aches, fever, chills, or sweats. EYES: Denies visual changes, redness, or discharge. ENT: Denies rhinorrhea, congestion, sore throat, or otalgia. CARDIOVASCULAR: Denies chest pain, palpitations, or edema. RESPIRATORY: Denies cough or dyspnea. GASTROINTESTINAL: Denies abdominal pain, nausea, vomiting, or diarrhea. GENITOURINARY: Denies dysuria or hematuria. SKIN: Denies rash, itching. +toe wound MUSCULOSKELETAL: Denies back pain, joint pain, or myalgia. NEUROLOGIC: Denies headache, numbness, tingling, or weakness. PSYCH: Denies depression or anxiety. [facility] Past Medical History Medical History Diabetes Exercise-induced asthma Fatty liver Mixed hyperlipidemia PCO (polycystic ovaries) Surgical History Surgical History History of hysterectomy History of tubal ligation Family History Family History Father Hypertension Family history of diabetes mellitus in first degree relative Diabetes mellitus Heart disease Mother Hypertension Asthma Family history of diabetes mellitus in first degree relative Depression Heart disease Sibling Asthma Cancer Diabetes mellitus Hypertension Heart disease Other Depression Grandparent Cancer Diabetes mellitus Hypertension Depression Heart disease Grandparent Diabetes mellitus Hypertension Heart disease Cerebrovascular accident Thyroid disorder Social History Social History Social History: Smoking status: Never smoker Second hand tobacco smoke exposure: No Alcohol intake: current Alcohol use details: Pt drinks alcohol once a month. Substance use: never Substance use type: does not use Lack of Transportation: No Lack of Food: Never True Current Housing: I Have Housing Concerned About Future Housing: No Difficulty Paying Gas/Electric Bills: No Difficulty Paying for Meds: No Currently Unemployed: No Education: Decline to Answer Difficulty w/ Childcare or Family Care: No Living arrangements: with family Occupation/Education: occupation Additional occupation/education comments: currently working from home Gender identity (if verbalized by the patient): Female Comments At time of signature, I have reviewed and agree with nursing past medical, surgical, social and family history unless otherwise note
== END 2023-12-17 10:07 | disposition home or self-care (01) ==
PROVIDERS: Emergency Provider Nurse Practitioner; PCP Family Medicine
DX: S91.104A Unspecified open wound of right lesser toe(s) without damage to nail, initial encounter (principal); X58.XXXA Exposure to other specified factors, initial encounter; E11.9 Type 2 diabetes mellitus without complications; J45.990 Exercise induced bronchospasm; K76.0 Fatty (change of) liver, not elsewhere classified; E78.2 Mixed hyperlipidemia; E28.2 Polycystic ovarian syndrome
CPT/HCPCS: 87070; 87075; 87205; 99213; G0463

== ENCOUNTER 2024-04-08 14:41 | Outpatient (CLI) | payer BC, SELFPAY ==
--- NOTE | ~2024-04-08 | MM_ITS ---
EXAMINATION: MM screening [facility] w [place] HISTORY: Screening TECHNIQUE: Craniocaudal and mediolateral oblique 3-D tomosynthesis images were obtained and synthetic 2-D images were generated. CAD analysis was submitted and interpreted. COMPARISON: Comparison to multiple prior studies sequentially, with oldest reviewed study dated 09/28. BREAST PARENCHYMAL COMPOSITION: Dense: The breasts are heterogeneously dense, which may obscure small masses FINDINGS: There is no evidence of suspicious mass, calcification, or architectural distortion to sugg est malignancy in either breast. There has been no suspicious interval change. IMPRESSION: 1. No mammographic evidence of malignancy. 2. Recommend routine screening mammography in one year. BI-RADS Category 1: Negative Reviewed, dictated and finalized at location B.
== END 2024-04-08 14:42 | disposition home or self-care (01) ==
LOC: MICIMG 14:42
PROVIDERS: PCP Family Medicine; Visit Provider Obstetrics & Gynecology
DX: Z12.31 Encounter for screening mammogram for malignant neoplasm of breast (principal)
CPT/HCPCS: 77063; 77067

== ENCOUNTER 2024-05-17 09:25 | Outpatient (CLI) | payer BC, SELFPAY ==
[2024-05-17 10:16] LABS: Hematocrit 43.1 % (37.0-47.0); Hemoglobin 14.1 g/dL (12.0-15.0); Mean Corpuscular HGB Conc 32.7 g/dl (32-36); Mean Corpuscular Hemoglobin 29.3 pg (26-34); Mean Corpuscular Volume 89.4 fl (80-100); Mean Platelet Volume 9.8 fl (7.4-10.4); Platelet Count Result 323 k/mm3 (150-375); Red Blood Count 4.82 M/mm3 (4.2-5.4); Red Cell Distribution Width 12.5 % (11.5-14.5)
[2024-05-17 10:20] LABS: Add Urine Microscopic? NO; Appearance Urine Clear (Clear); Bilirubin Urine Negative (Negative); Blood Urine Negative (Negative); Color Urine Yellow (Yellow); Glucose Urine UA Negative (Negative); Ketones Urine 1+ mg/dL (Negative); Leukocyte Esterase Ur Negative LEU/UL (Negative); Nitrate Urine Negative (Negative); Protein Urine Negative (Negative); Urobilinogen Urine 0.2 mg/dL (<2.0)
[2024-05-17 10:50] LABS: Hemoglobin A1C 7.1 % (<5.7)
[2024-05-17 11:52] LABS: Creatinine Urine 153.9 mg/dL
[2024-05-17 11:56] LABS: Microalbumin Urine Random 24.7 mg/L (0-16.7)
[2024-05-17 12:48] LABS: Alanine Aminotransferase 49 U/L (6-35); Albumin Level 4.4 g/dL (3.5-5.1); Alkaline Phosphatase 91 U/L (38-126); Anion Gap 9 mmol/L (4-12); Aspartate Amino Transferase 66 U/L (14-36); Bilirubin,Total 0.6 mg/dL (0.2-1.3); Blood Urea Nitrogen 12 mg/dL (7-17); Calcium 9.5 mg/dL (8.4-10.2); Carbon Dioxide 25 mmol/L (22-30); Chloride 101 mmol/L (98-107); Cholesterol 168 mg/dL (0-200); Estimated Glomerular Filt Rate > 60; Glucose 141 mg/dL (65-110); HDL Direct 42 mg/dL; Potassium 4.7 mmol/L (3.4-5.0); Sodium 135 mmol/L (137-145); Triglycerides 267 mg/dL (<150)
[2024-05-17 12:58] LABS: LDL Cholesterol Direct 81 mg/dL
== END 2024-05-17 09:26 | disposition home or self-care (01) ==
LOC: ANHLAB 09:26
PROVIDERS: PCP Family Medicine; Visit Provider Family Medicine
DX: E78.2 Mixed hyperlipidemia (principal); E11.9 Type 2 diabetes mellitus without complications; Z00.00 Encounter for general adult medical examination without abnormal findings
CPT/HCPCS: 36415; 80053; 80061; 81003; 82043; 83036; 84443; 85027

== ENCOUNTER 2024-07-28 02:02 | Day surgery (SDC) | payer BC, SELFPAY ==
[2024-07-16 14:43] VITALS: BMI 30.6
--- OUTSIDE RECORDS SUMMARY | 2024-07-28 02:05 | XMS_ITS | Continuity of Care Document ---
Author Organization [facility] Address [address] [place] [address] Phone Care Team Providers Care Rn Icu Name Role Phone Yong Ayala Unavailable Unavailable Advance Directives Directive Yes / No Effective Date File Name No Information Encounters Encounter Description Practice Location Reason(s) For Visit Diagnoses Date Provider Providers Copied on Encounter [facility], [address], [place], [place], [id number], [place] tel:[phone] [facility] No Information [address] , [address], [place], [address], [place]. tel:[phone] Referring Provider: Doni Araiza, [address] [place] [address], [address]. tel:[phone] Family History Family Member Type Diagnosis Age At Onset No Information Payers Payer name Insurance type Covered democrat ID Adrien murray(s) [facility] CI [id number] Social History Type Description Quantity Date Captured Comments Sex Female Smoking Status No Information Chief Complaint And Reason For Visit No Information Reason For Referral Reason For Referral No Information History Of Present Illness Encounter Date Complaint History Of Prese nt Illness No Information Functional Status Date Functional Assessmen t No Information Instructions Date Instruction Additional Infor mation No Information Assessments Type Assessment Date No Information Patient Care Teams Name Effective Dates (start - stop) Status Members No Information
--- OUTSIDE RECORDS SUMMARY | 2024-07-28 02:05 | XMS_ITS | Clinical Summary ---
Author Organization [facility] Address [address] [place] [address] Phone Care Team Providers Care Ux Developer Designer Name Role Phone Pete Aguirre MD Primary Care Provider [phone] Allergies Active Allergy Reactions Criticality Noted Date Comments Trimethobenzamide-Benzocaine Swelling 017 Medications multivitamin (DAILY-BRITTNEE) tablet Take 1 Tablet by mouth daily. Active Betamethasone-C alcipotriene (TACLONEX) 0.005-0.064 % Suspension Apply to scalp daily. 6 Gram 06/21/2017 Active Betamethasone-C alcipotriene (TACLONEX) 0.005-0.064 % Suspension Apply to affected areas of scalp once per day. 60 Gram 1 06/21/2017 Active spironolactone (ALDACTONE) 25 mg tablet Take 1 Tablet (25 mg) by mouth 2 times daily. 60 Tablet 3 06/21/2017 Active clobetasol (TEMOVATE) 0.05 % SolutionIndicat ions:Scalp psoriasis Apply to affected areas of scalp once per day. 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 Gender Identity Not on file Sexual Orientation Not on file Last Filed Vital Signs Vital Sign Reading Time Taken Comments Blood Pressure 124/76 09/27/2017 9:29 AM CDT Pulse - - Temperature - - Respiratory Rate - - Oxygen Saturation - - Inhaled Oxygen Concentration - - Weight 74.8 kg (165 lb) 09/27/2017 9:29 AM CDT Height 162.6 cm (5' 4 ) 09/27/2017 9:29 AM CDT Body Mass Index 28.32 09/27/2017 9:29 AM CDT Plan of Treatment Health Maintenance Due Date Last Done Comments DTAP/TDAP/TD VACCINES (1 - Tdap) 1993 HEPATITIS B VACCINES (1 of 3 - 19+ 3-dose series) 1993 BREAST CANCER SCREENING 2014 COLORECTAL SCREENING 2019 Colorectal Cancer Screening 2019 FIT-DNA Q 3 years 2019 FIT/FOBT Q 1 year 2019 Flex Sig/CT Colonography Q 5 years 2019 CERVICAL CANCER SCREENING 11/30/20222019, 09/03/2017, 08/21/2016, Additional history exists INFLUENZA VACCINE (#1) 2024 PNEUMOCOCCAL VACCINE 0-64 YEARS Aged Out No longer eligible based on patient's age to complete this topic Care Teams Ux Developer Designer Relationship Specialty Start Date End Date Pete Aguirre MD [address] [facility] [address] [place] [id number] PCP - General Family Practice 09/27/17
[2024-07-28 07:40] VITALS: BP 131/83; PULSE 65; RESP 18; TEMP 35.8; O2SAT 99; BMI 31.3
--- NOTE | 2024-07-28 08:00 | WPDANESEPPF ---
Anes - Initial Pre Proc Eval Procedure: Operation Date: 07/28/24 09:00 Proposed Procedures p Screening Colonoscopy - Ravi Stephens DO Date/Time: 07/28/24 08:00 Surgeon: Ravi Stephens DO Pre Op Diagnosis: Screening for malignant neoplasm of colon Patient Data Age: 48 Gender: F Height: 1.63 m Weight: 82.7 kg Last Vital Signs Temp 35.8 C L 07/28/24 07:40 Pulse 65 07/28/24 07:40 Resp 18 07/28/24 07:40 BP 131/83 07/28/24 07:40 Pulse Ox 99 07/28/24 07:40 O2 Del Method Room Air 07/28/24 07:40 Allergies Allergy/AdvReac Type Severity Reaction Status Date / Time trimethobenzamide Allergy Mild LOCAL Verified 07/28/24 07:49 REACTION Home Medications ?Medication ?Instructions ?Recorded ?Confirmed ?Type fluticasone propionate 50 2 spray intranasal DAILY 06/26/19 07/28/24 History mcg/actuation nasal spray,suspension (Flonase Allergy Relief) norethindrone 1 mg-ethinyl 1 tablet PO DAILY 06/26/19 07/28/24 History estradiol 10 mcg (24)-iron 10 mcg(2) tablet (Lo Loestrin Fe) blood sugar diagnostic (OneTouch #50 ea 11/08/20 05/23/24 Rx Ultra Blue Test Strip) blood sugar diagnostic (OneTouch #100 ea 11/09/20 05/23/24 Rx Ultra Blue Test Strip) multivitamin 1 tablet PO DAILY 04/14/22 07/28/24 History minoxidil 2 % topical solution 1 ml topical BID #180 mL 10/26/22 07/16/24 Rx (Rogaine) hydroxyzine HCl 25 mg tablet 25 mg PO DAILY PRN panic attack(s) 11/07/22 07/16/24 Rx #10 tabs fexofenadine 180 mg tablet 180 mg PO DAILY #1 tablet 12/20/22 07/28/24 Rx (Karolyn Allergy) clobetasol 0.05 % scalp solution 1 applic topical DAILY #50 mL 06/29/23 07/16/24 Rx sertraline 25 mg tablet (Zoloft) 25 mg PO DAILY #90 tabs 01/18/24 07/28/24 Rx lisinopril 5 mg tablet See Rx Instructions .Route 04/07/24 07/28/24 Rx .COMPLEX #90 tabs spironolactone 100 mg tablet See Rx Instructions .Route 04/07/24 07/28/24 Rx .COMPLEX #90 tabs tirzepatide 2.5 mg/0.5 mL 2.5 mg (0.5 mL) subcut WEEKLY #2 mL 05/24/24 07/16/24 Rx subcutaneous pen injector (Mounjaro) rosuvastatin 5 mg tablet See Rx Instructions .Route 06/02/24 07/28/24 Rx .COMPLEX #90 tabs ascorbic acid (vitamin C) 500 mg 500 mg PO DAILY 07/16/24 07/28/24 History capsule cholecalciferol (vitamin D3) 10 2,000 unit PO DAILY 07/16/24 07/28/24 History mcg (400 unit) capsule vitamin B complex (Vitamins B 1 cap PO DAILY 07/16/24 07/28/24 History Complex capsule) zinc acetate 25 mg (zinc) capsule 25 mg PO DAILY 07/16/24 07/28/24 History Patient hx anesthesia problems: none Family hx anesthesia problems: none Results Review: All pre-operative results and documents have been reviewed as part of the pre-operative evaluation. [facility] Past Medical History Medical History Fatty liver Diabetes Exercise-induced asthma Mixed hyperlipidemia PCO (polycystic ovaries) Surgical History Surgical History History of tubal ligation History of hysterectomy Family History Family History Father Hypertension Family history of diabetes mellitus in first degree relative Diabetes mellitus Heart disease Mother Hypertension Asthma Family history of diabetes mellitus in first degree relative Depression Heart disease Sibling Asthma Cancer Diabetes mellitus Hypertension Heart disease Other Depression Grandparent Cancer Diabetes mellitus Hypertension Depression Heart disease Grandparent Diabetes mellitus Hypertension Heart disease Cerebrovascular accident Thyroid disorder Social History Social History Social History: Smoking status: Never smoker Second hand tobacco smoke exposure: No Alcohol intake: never Alcohol use details: Pt drinks alcohol once a month. Substance use: never Substance use type: does not use Lack of Transportation: No Lack of Food: Never True Current Housing: I Have Housing Concerned About Future Housing: No Difficulty Paying Gas/Electric Bills: No Difficulty Paying for Meds: No Currently Unemployed: No Education: Decline to Answer Difficulty w/ Childcare or Family Care: No Living arrangements: alone Occupation/Education: occupation Additional occupation/education comments: currently working from home Gender identity (if verbalized by the patient): Female Spiritual care concerns: No Anes - Eval Final PreProcedure Day of Procedure 07/28/24 08:00 Patient weight: obese Heart: regular rate and rhythm Lungs: clear to auscultation Airway: Mallampati scale class II Neurological: alert and oriented Last oral intake: >/= 8 hours ASA classification: III Emergent: no Anesthetic plan: proceed Anesthesia type and monitoring: general GIVS and standard monitoring Results Review: All pre-operative results and documents have been reviewed as part of the pre-operative evaluation. Informed Consent: The patient's anesthetic plan and its attendant risks and benefits were discussed with the patient/family/POA. Questions were solicited and answers provided to the satisfaction of the patient/family/POA.
[2024-07-28] MEDS: LACTATED RINGERS 1,000 ML 150 ML IV CONT (08:02)
[2024-07-28 08:03] LABS: Glucose Point of Care 148 mg/dl (65-105)
--- NOTE | 2024-07-28 08:47 | PM.IMHP ---
H&P: HPI History of Present Illness Date/Time: 07/28/24 08:47 Chief Complaint: screening for colorectal cancer Narrative: this is a 48-year-old woman who presents for colonoscopy. She did have a colonoscopy about 20 years ago for rectal bleeding that was due to hemorrhoids. She denies any current hematochezia or melena. She denies any family history of colon cancer Review of Systems Review of Systems: All systems reviewed & are unremarkable except as noted in HPI and below Constitutional: Constitutional: Denies chills, Denies fever(s), Denies headache(s) and Denies weight loss Eyes: Eyes: Denies change in vision ENT: Denies dizziness, Denies headache(s), Denies neck mass and Denies throat swelling Cardiovascular: Cardiovascular: Denies chest pain, Denies lightheadedness and Denies dyspnea Respiratory: Respiratory: Denies cough, Denies dyspnea and Denies wheezing Gastrointestinal: Gastrointestinal: Denies abdominal pain, Denies change in bowel habits, Denies nausea and Denies vomiting Genitourinary: Genitourinary: Denies hematuria and Denies dysuria Musculoskeletal: Musculoskeletal: Reports as per HPI Integumentary/Breasts: Skin/Breast: Reports as per HPI Neurologic: Denies dizziness and Denies headache(s) Allergic/Immunologic: Allergic/Immunologic: Denies throat swelling and Denies wheezing PMFSH Past Medical History Medical History Fatty liver Diabetes Exercise-induced asthma Mixed hyperlipidemia PCO (polycystic ovaries) Surgical History Surgical History History of tubal ligation History of hysterectomy Family History Family History Father Hypertension Family history of diabetes mellitus in first degree relative Diabetes mellitus Heart disease Mother Hypertension Asthma Family history of diabetes mellitus in first degree relative Depression Heart disease Sibling Asthma Cancer Diabetes mellitus Hypertension Heart disease Other Depression Grandparent Cancer Diabetes mellitus Hypertension Depression Heart disease Grandparent Diabetes mellitus Hypertension Heart disease Cerebrovascular accident Thyroid disorder Social History Social History Social History: Smoking status: Never smoker Second hand tobacco smoke exposure: No Alcohol intake: never Alcohol use details: Pt drinks alcohol once a month. Substance use: never Substance use type: does not use Lack of Transportation: No Lack of Food: Never True Current Housing: I Have Housing Concerned About Future Housing: No Difficulty Paying Gas/Electric Bills: No Difficulty Paying for Meds: No Currently Unemployed: No Education: Decline to Answer Difficulty w/ Childcare or Family Care: No Living arrangements: alone Occupation/Education: occupation Additional occupation/education comments: currently working from home Gender identity (if verbalized by the patient): Female Spiritual care concerns: No Meds Home Medications and Allergies Home Medications ?Medication ?Instructions ?Recorded ?Confirmed ?Type fluticasone propionate 50 2 spray intranasal DAILY 06/26/19 07/28/24 History mcg/actuation nasal spray,suspension (Flonase Allergy Relief) norethindrone 1 mg-ethinyl 1 tablet PO DAILY 06/26/19 07/28/24 History estradiol 10 mcg (24)-iron 10 mcg(2) tablet (Lo Loestrin Fe) blood sugar diagnostic (OneTouch #50 ea 11/08/20 05/23/24 Rx Ultra Blue Test Strip) blood sugar diagnostic (OneTouch #100 ea 11/09/20 05/23/24 Rx Ultra Blue Test Strip) multivitamin 1 tablet PO DAILY 04/14/22 07/28/24 History minoxidil 2 % topical solution 1 ml topical BID #180 mL 10/26/22 07/16/24 Rx (Rogaine) hydroxyzine HCl 25 mg tablet 25 mg PO DAILY PRN panic attack(s) 11/07/22 07/16/24 Rx #10 tabs fexofenadine 180 mg tablet 180 mg PO DAILY #1 tablet 12/20/22 07/28/24 Rx (Karolyn Allergy) clobetasol 0.05 % scalp solution 1 applic topical DAILY #50 mL 06/29/23 07/16/24 Rx sertraline 25 mg tablet (Zoloft) 25 mg PO DAILY #90 tabs 01/18/24 07/28/24 Rx lisinopril 5 mg tablet See Rx Instructions .Route 04/07/24 07/28/24 Rx .COMPLEX #90 tabs spironolactone 100 mg tablet See Rx Instructions .Route 04/07/24 07/28/24 Rx .COMPLEX #90 tabs tirzepatide 2.5 mg/0.5 mL 2.5 mg (0.5 mL) subcut WEEKLY #2 mL 05/24/24 07/16/24 Rx subcutaneous pen injector (Jolynn) rosuvastatin 5 mg tablet See Rx Instructions .Route 06/02/24 07/28/24 Rx .COMPLEX #90 tabs ascorbic acid (vitamin C) 500 mg 500 mg PO DAILY 07/16/24 07/28/24 History capsule cholecalciferol (vitamin D3) 10 2,000 unit PO DAILY 07/16/24 07/28/24 History mcg (400 unit) capsule vitamin B complex (Vitamins B 1 cap PO DAILY 07/16/24 07/28/24 History Complex capsule) zinc acetate 25 mg (zinc) capsule 25 mg PO DAILY 07/16/24 07/28/24 History Allergies Allergy/AdvReac Type Severity Reaction Status Date / Time trimethobenzamide Allergy Mild LOCAL Verified 07/28/24 07:49 REACTION Vital Signs Vital Signs - 24 hr 07/28/24 07:40 Temperature 96.5 F L Pulse Rate 65 Respiratory Rate 18 Blood Pressure 131/83 Pulse Oximetry 99 Oxygen Delivery Room Air Exam Const: General: no acute distress and alert Orientation/consciousness: patient oriented x3 HENMT: Head: normocephalic and atraumatic Ears: hearing grossly normal bilaterally Face/Nose/Sinus: Normal nares present Mouth: Yes Normal oral and palatal mucosa present Eyes: Periorbital: periorbital findings normal Sclera: sclerae normal EOM: EOMs intact bilaterally Neck: Neck: normal visual inspection, no lymphadenopathy and trachea midline Chest: Chest palpation & inspection: normal inspection of the chest Resp: Effort & Inspection: normal respiratory effort Auscultation: clear to auscultation bilaterally Cardio: Jugular venous distension: no JVD Rate: regular rate Rhythm: regular rhythm Heart sounds: S1 normal heart sound present and S2 normal heart sound present Peripheral pulses: Peripheral pulses 2+ throughout GI: Inspection: normal to inspection GI Palp: Yes Soft to palpation, No Tenderness to palpation present (GI), No Guarding due to palpation present (GI) and No Rebound tenderness present Percussion: Yes normal to percussion Auscultation: normal bowel sounds : General: Yes no CVA tenderness Back/Spine/Pelvis: Back: no CVA tenderness Neuro: General: patient oriented x3, no focal motor deficits and CN's II-XI intact bilaterally Cognition (Neuro): normal cognition Speech: normal speech Motor exam (neuro): 5/5 motor strength present throughout Extrem: General: capillary refill normal and no clubbing, cyanosis or edema Assessment and Plan Assessment and plan (1) Screening for colorectal cancer: Code(s): Z12.11 - Encounter for screening for malignant neoplasm of colon; Z12.12 - Encounter for screening for malignant neoplasm of rectum Status: Acute Assessment and Plan: I have recommended colonoscopy. I have discussed the procedure, risks, benefits, and alternatives. Questions were answered. Patient is agreeable to proceed.
[2024-07-28 09:18] VITALS: BP 109/71; PULSE 64; RESP 20; O2SAT 98
[2024-07-28 09:28] VITALS: BP 117/75; PULSE 59; RESP 20; O2SAT 98
[2024-07-28 09:38] VITALS: BP 129/79; PULSE 59; RESP 20; O2SAT 99
== END 2024-07-28 09:48 | disposition home or self-care (01) ==
PROVIDERS: PCP Family Medicine; Visit Provider Surgery
PROC: 0DJD8ZZ Inspection of Lower Intestinal Tract, Via Natural or Artificial Opening Endoscopic (ICD-10-PCS; CPT 45378; principal; 2024-07-28 09:00)
DX: Z12.11 Encounter for screening for malignant neoplasm of colon (principal); K51.40 Inflammatory polyps of colon without complications; K57.30 Diverticulosis of large intestine without perforation or abscess without bleeding; E11.9 Type 2 diabetes mellitus without complications; E78.2 Mixed hyperlipidemia; Z79.85 Long-term (current) use of injectable non-insulin antidiabetic drugs; E66.9 Obesity, unspecified; Z68.31 Body mass index [BMI] 31.0-31.9, adult
CPT/HCPCS: 45385; 82948; 88305; J2003; J2704; J7120

== ENCOUNTER 2024-09-12 09:45 | Outpatient (CLI) | payer BC, SELFPAY ==
[2024-09-12 10:07] LABS: Hemoglobin A1C 6.7 % (<5.7)
--- OUTSIDE RECORDS SUMMARY | 2024-09-12 10:21 | XMS_ITS | Continuity of Care Document ---
Author Organization [facility] Address [address] [place] [address] Phone Care Team Providers Care Grinder Watch Parts Name Role Phone Yong Ayala Unavailable Unavailable Advance Directives Directive Yes / No Effective Date File Name No Information Encounters Encounter Description Practice Location Reason(s) For Visit Diagnoses Date Provider Providers Copied on Encounter [facility], [address], [place], [place], [id number], [place] tel:[phone] [facility] No Information [address] , [address], [place], [address], [place]. tel:[phone] Referring Provider: Doni Araiza, [address] [place] [address], [address]. tel:[phone] Family History Family Member Type Diagnosis Age At Onset No Information Payers Payer name Insurance type Covered constitution party ID Adrien murray(s) [facility] CI [id number] Social History Type Description Quantity Date Captured [...]
--- OUTSIDE RECORDS SUMMARY | 2024-09-12 10:21 | XMS_ITS | Clinical Summary ---
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
[2024-09-12 10:55] LABS: Alanine Aminotransferase 44 U/L (14-59); Albumin Level 3.7 g/dL (3.4-5.0); Alkaline Phosphatase 93 U/L (46-116); Anion Gap 12 mmol/L (4-12); Aspartate Amino Transferase 41 U/L (15-37); Bilirubin,Total 0.3 mg/dL (0.00-1.00); Blood Urea Nitrogen 18 mg/dL (7-18); Calcium 9.3 mg/dL (8.5-10.1); Carbon Dioxide 23 mmol/L (21-32); Chloride 105 mmol/L (98-108); Estimated Glomerular Filt Rate > 60; Glucose 125 mg/dL (70-99); Osmolality Calculated 292 mOsm/kg (285-295); Potassium 4.7 mmol/L (3.5-5.1); Sodium 140 mmol/L (136-145)
== END 2024-09-12 09:46 | disposition home or self-care (01) ==
LOC: CHSLAB 09:46
PROVIDERS: PCP Family Medicine; Visit Provider Family Medicine
DX: E11.9 Type 2 diabetes mellitus without complications (principal)
CPT/HCPCS: 36415; 80053; 83036

== ENCOUNTER 2025-01-28 10:18 | Outpatient (CLI) | payer BC, SELFPAY ==
--- OUTSIDE RECORDS SUMMARY | 2025-01-28 10:45 | XMS_ITS | Continuity of Care Document ---
Author Organization [facility] Address [address] [place] [address] Phone Care Team Providers Care Safety Teacher Name Role Phone Yong Ayala Unavailable Unavailable Advance Directives Directive Yes / No Effective Date File Name No Information Encounters Encounter Description Practice Location Reason(s) For Visit Diagnoses Date Provider Providers Copied on Encounter [facility], [address], [place], [place], [id number], [place] tel:[phone] [facility] No Information [address] , [address], [place], [address], [place]. tel:[phone] Referring Provider: Doni Araiza, [address] [place] [address], [address]. tel:[phone] Family History Family Member Type Diagnosis Age At Onset No Information Payers Payer name Insurance type Covered libertarian ID Adrien murray(s) [facility] CI [id number] Social History Type Description Quantity Date Captured [...]
--- OUTSIDE RECORDS SUMMARY | 2025-01-28 10:45 | XMS_ITS | Clinical Summary ---
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 Gender Identity Not on file Sexual Orientation Not on file Last Filed Vital Signs Vital Sign Reading Time Taken Comments Blood Pressure 124/76 09/27/2017 9:29 AM CDT Pulse - - Temperature - - Respiratory Rate - - Oxygen Saturation - - Inhaled Oxygen Concentration - - Weight 74.8 kg (165 lb) 09/27/2017 9:29 AM CDT Height 162.6 cm (5' 4) 09/27/2017 9:29 AM CDT Body Mass Index 28.32 09/27/2017 9:29 AM CDT Plan of Treatment Health Maintenance Due Date Last Done Comments DTAP/TDAP/TD VACCINES (1 - Tdap) 1993 HEPATITIS B VACCINES (1 of 3 - 19+ 3-dose series) 1993 HPV/Cotest (21-29) 1995 HPV/Cotest (30-65) 2004 COLORECTAL SCREENING 2019 Colorectal Cancer Screening 2019 FIT-DNA Q 3 years 2019 FIT/FOBT Q 1 year 2019 Flex Sig/CT Colonography Q 5 years 2019 BREAST CANCER SCREENING 01/25/2021 01/26/20, 01/26/2020, 09/28/2018, Additional history exists CERVICAL CANCER SCREENING 11/30/2022 PAP SMEAR 11/30/2022 12/01/2019, 03/10/2017, 08/21/2016, Additional history exists ZOSTER VACCINE (1 of 2) 2024 INFLUENZA VACCINE (#1) 2025 Care Teams Oncology Physician Relationship Specialty Start Date End Date Pete Aguirre MD [address] [facility] [address] [place] [address] PCP - General Family Practice 09/27/17
[2025-01-28 10:52] LABS: Alanine Aminotransferase 22 U/L (6-35); Albumin Level 4.1 g/dL (3.5-5.1); Alkaline Phosphatase 91 U/L (38-126); Anion Gap 6 mmol/L (4-12); Aspartate Amino Transferase 30 U/L (14-36); Bilirubin,Total 0.4 mg/dL (0.2-1.3); Blood Urea Nitrogen 18 mg/dL (7-17); Calcium 9.2 mg/dL (8.4-10.2); Carbon Dioxide 22 mmol/L (22-30); Chloride 107 mmol/L (98-107); Estimated Glomerular Filt Rate > 60; Glucose 95 mg/dL (65-110); Osmolality Calculated 281 mOsm/kg (285-295); Potassium 5.0 mmol/L (3.4-5.0); Sodium 135 mmol/L (137-145); Total Protein 6.8 g/dL (6.3-8.2)
[2025-01-28 11:08] LABS: Hemoglobin A1C 5.6 % (<5.7)
== END 2025-01-28 10:19 | disposition home or self-care (01) ==
LOC: CHSLAB 10:20
PROVIDERS: PCP Physician Assistant Medical; Visit Provider Physician Assistant Medical
DX: K76.0 Fatty (change of) liver, not elsewhere classified (principal); E11.9 Type 2 diabetes mellitus without complications
CPT/HCPCS: 36415; 80053; 83036

== ENCOUNTER 2025-04-09 15:00 | Outpatient (CLI) | payer BC, SELFPAY ==
--- NOTE | ~2025-04-09 | MM_ITS ---
EXAMINATION: MM screening [facility] BI w saturnino HISTORY: Screening TECHNIQUE: Craniocaudal and mediolateral oblique 3-D tomosynthesis images were obtained and synthetic 2-D images were generated. CAD analysis was submitted and interpreted. COMPARISON: Comparison to multiple prior studies sequentially, with oldest reviewed study dated , 01/26/2020 BREAST PARENCHYMAL COMPOSITION: The breasts are heterogeneously dense, which may obscure small masses. FINDINGS: There is no evidence of suspicious mass, calcification, or architectural distortion to suggest malignancy in either breast. IMPRESSION: 1. No mammographic evidence of malignancy. 2. Recommend routine screening mammography in one year. BI-RADS Category 1: Negative Reviewed, dictated and finalized at location B.
== END 2025-04-09 15:01 | disposition home or self-care (01) ==
LOC: CHSIMG 15:02
PROVIDERS: PCP Family Medicine; Visit Provider Obstetrics & Gynecology
DX: Z12.31 Encounter for screening mammogram for malignant neoplasm of breast (principal)
CPT/HCPCS: 77063; 77067

== ENCOUNTER 2025-06-01 07:23 | Outpatient (CLI) | payer BC, SELFPAY ==
--- OUTSIDE RECORDS SUMMARY | 2025-06-01 07:26 | XMS_ITS | Clinical Summary ---
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
--- OUTSIDE RECORDS SUMMARY | 2025-06-01 07:26 | XMS_ITS | Clinical Summary ---
Author Organization [facility] [address] Address [address] [place] [address] Care Team Providers Care Union Organiser Name Role Phone Pete Aguirre MD Primary Care Provider Allergies Active Allergy Reactions Criticality Noted Date Comments Trimethobenzamide Swelling Medium 02/11/2025 Medications spironolactone (ALDACTONE) 100 mg tablet Take 1 tablet (100 mg total) by mouth daily Active rosuvastatin (CRESTOR) 5 mg tablet 01/22/2025 Active lisinopriL (PRINIVIL,ZESTR [place]) 5 mg tablet 12/29/2024 Act binaca Mounjaro 5 mg/0.5 mL pen injector injection 01/30/2025 Active Lo Loestrin Fe 1 mg-10 mcg (24)/10 mcg (2) tablet per tablet 11/22/2024 Active multivitamin tablet Take 1 tablet by mouth daily Active vitamin B complex capsule Take 1 capsule by mouth daily Active ascorbic acid (vitamin C) 1,000 mg tablet Take 1 tablet (1,000 mg total) by mouth daily Active cholecalciferol (VITAMIN D-3) 15268 unit capsule Take 1 capsule (10,000 Units total) by mouth daily Active magnesium oxide 400 mg magnesium capsule Take by mouth Active zinc gluconate 50 mg tablet Take 1 tablet (50 mg total) by mouth daily Active docusate sodium (COLACE) 100 mg capsuleIndicati ons:constipatio n Take 1 capsule (100 mg total) by mouth 2 (two) times a day Active sertraline (ZOLOFT) 25 mg tablet Take 1 tablet (25 mg total) by mouth daily Active Active Problems Problem Noted Date Diagnosed Date Asymptomatic varicose veins of right lower extre mity 02/11/2025 Assessment & Plan (02/11/2025 11:41 AM CDT): Compression therapy, leg elevation, activity. Patient to follow-up in 6 months with right lower extremity venous reflux study Social History Tobacco Use Types Packs/Day Years Used Date Smoking Tobacco: Never Assessed Comments Unknown Sex and Gender Information Value Date Recorded Sex Assigned at Not on file Legal Sex Female 9:49 AM CDT Gender Identity Not on file Sexual Orientation Not on file Last Filed Vital Signs Vital Sign Reading Time Taken Comments Blood Pressure 117/79 02/11/2025 9:31 AM CDT Pulse 57 02/11/2025 9:31 AM CDT Temperature - - Respiratory Rate - - Oxygen Saturation 100% 02/11/2025 9:31 AM CDT Inhaled Oxygen Concentration - - Weight 69.9 kg (154 lb) 02/11/2025 9:31 AM CDT Height 162.6 cm (5' 4) 02/11/2025 9:31 AM CDT Body Mass Index 26.43 02/11/2025 9:31 AM CDT Plan of Treatment Health Maintenance Due Date Last Done Comments Breast Cancer Screening-Mammogram 1974 Cervical Cancer Screening 1974 Colon Cancer Screening-Colonoscopy 1974 Depression Screening 1974 Hepatitis C Screening 1974 DTaP/Tdap/Td Vaccine (1 - Tdap) 1985 Hepatitis B Screening 1992 Regular Well Visit/Exam 18-64 1992 Zoster Vaccine (1 of 2) 2024 Covid-19 Vaccine (4 - 2024-2 6 season) 2025 05/06/2021, 10/22/2020, 09/24/2020 Influenza Vaccine (#1) 2025 Pneumococcal vaccine <65 Aged Out No longer eligible based on patient's age to complete this topic Insurance [place] [employer] [place] Care Teams Union Organiser Relationship Specialty Start Date End Date Pete Aguirre MD [address] [facility] [address] [place] [address] PCP - General Family Medicine 11/09/22
[2025-06-01 07:46] LABS: Hematocrit 38.8 % (35.0-49.0); Hemoglobin 13.0 g/dL (12.0-15.0); Mean Corpuscular HGB Conc 33.5 g/dL (32-36); Mean Corpuscular Hemoglobin 29.4 pg (27.0-31.0); Mean Corpuscular Volume 87.8 fL (78.0-102.0); Platelet Count Result 356 K/mm3 (150-420); Red Blood Count 4.42 M/mm3 (4.20-5.40); White Blood Count 12.1 K/mm3 (4.8-10.8)
[2025-06-01 08:02] LABS: Alanine Aminotransferase 21 U/L (6-35); Albumin Level 4.3 g/dL (3.5-5.1); Alkaline Phosphatase 77 U/L (38-126); Anion Gap 11 mmol/L (4-12); Aspartate Amino Transferase 24 U/L (14-36); Bilirubin,Total 0.4 mg/dL (0.2-1.3); Blood Urea Nitrogen 17 mg/dL (7-17); Calcium 9.3 mg/dL (8.4-10.2); Carbon Dioxide 21 mmol/L (22-30); Chloride 106 mmol/L (98-107); Cholesterol 171 mg/dL (0-200); Estimated Glomerular Filt Rate > 60; Glucose 97 mg/dL (65-110); HDL Direct 58 mg/dL; Osmolality Calculated 287 mOsm/kg (285-295); Potassium 4.2 mmol/L (3.4-5.0); Sodium 138 mmol/L (137-145); Total Protein 6.8 g/dL (6.3-8.2); Triglycerides 234 mg/dL (<150)
[2025-06-01 08:06] LABS: Hemoglobin A1C 5.4 % (<5.7)
[2025-06-01 08:14] LABS: MALB Creatinine Ratio 0.0 mg/g (0-30)
[2025-06-01 08:34] LABS: Thyroid Stimulating Hormone 3.620 uIU/mL (0.465-4.680)
== END 2025-06-01 07:24 | disposition home or self-care (01) ==
LOC: CHSLAB 07:24
PROVIDERS: PCP Family Medicine; Visit Provider Physician Assistant Medical
DX: E11.9 Type 2 diabetes mellitus without complications (principal); K76.0 Fatty (change of) liver, not elsewhere classified; F41.9 Anxiety disorder, unspecified; E78.2 Mixed hyperlipidemia; I10 Essential (primary) hypertension
CPT/HCPCS: 36415; 80053; 80061; 82043; 83036; 84443; 85027

== ENCOUNTER 2025-06-19 09:06 | Outpatient (CLI) | payer BC, SELFPAY ==
--- OUTSIDE RECORDS SUMMARY | 2025-06-19 09:19 | XMS_ITS | Clinical Summary ---
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
--- OUTSIDE RECORDS SUMMARY | 2025-06-19 09:19 | XMS_ITS | Clinical Summary ---
Author Organization [facility] [address] Address [address] [place] [address] Care Team Providers Care District Loss Prevention Manager Name Role Phone Pete Aguirre MD Primary Care Provider Allergies Active Allergy Reactions Criticality Noted Date Comments Trimethobenzamide Swelling Medium 02/11/2025 Medications spironolactone (ALDACTONE) 100 mg tablet Take 1 tablet (100 mg total) by mouth daily Active rosuvastatin (CRESTOR) 5 mg tablet 01/22/2025 Active lisinopriL (PRINIVIL,ZESTR [place]) 5 mg tablet 12/29/2024 Act bianca Mounjaro 5 mg/0.5 mL pen injector injection 01/30/2025 Active Lo Loestrin Fe 1 mg-10 mcg (24)/10 mcg (2) tablet per tablet 11/22/2024 Active multivitamin tablet Take 1 tablet by mouth daily Active vitamin B complex capsule Take 1 capsule by mouth daily Active ascorbic acid (vitamin C) 1,000 mg tablet Take 1 tablet (1,000 mg total) by mouth daily Active cholecalciferol (VITAMIN D-3) 77450 unit capsule Take 1 capsule (10,000 Units [...] complete this topic Insurance [place] [employer] [place] Care Teams District Loss Prevention Manager Relationship Specialty Start Date End Date Pete Aguirre MD [address] [facility] [address] [place] [address] PCP - General Family Medicine 11/09/22
[2025-06-19 09:21] LABS: Hematocrit 42.7 % (35.0-49.0); Hemoglobin 14.0 g/dL (12.0-15.0); Immature Granulocyte Percent A 0.5 % (0.0-0.0); Lymphocytes Absolute Auto 3.68 K/mm3 (1.10-4.50); Mean Corpuscular HGB Conc 32.8 g/dL (32-36); Mean Corpuscular Hemoglobin 29.0 pg (27.0-31.0); Mean Corpuscular Volume 88.6 fL (78.0-102.0); Nucleated Red Blood Cells Absolute Auto 0.00 K/mm3 (0.00-0.00); Nucleated Red Blood Cells Perc 0.0 % (0-0.0); Platelet Count Result 391 K/mm3 (150-420); Red Blood Count 4.82 M/mm3 (4.20-5.40); White Blood Count 10.6 K/mm3 (4.8-10.8)
== END 2025-06-19 09:07 | disposition home or self-care (01) ==
LOC: CHSLAB 09:07
PROVIDERS: PCP Family Medicine; Visit Provider Physician Assistant Medical
DX: D72.829 Elevated white blood cell count, unspecified (principal)
CPT/HCPCS: 36415; 85025